=== PATIENT | male | born 1990 | race Caucasian/White ===

== ENCOUNTER 2017-03-20 21:54 | Emergency (ER) | payer OTHER ==
[2017-03-20 22:45] VITALS: BP 142/96; PULSE 93; TEMP 98.7; BMI 28.1
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
[2017-03-21] MEDS ORDERED: IBUPROFEN 400 MG TABLET (FP) PO ONE ×2 (01:37→01:40)
== END 2017-03-21 01:49 | disposition home or self-care (01) ==
LOC: JER 21:54
DX: S89.81XA Other specified injuries of right lower leg, initial encounter (principal); S89.82XA Other specified injuries of left lower leg, initial encounter; S60.511A Abrasion of right hand, initial encounter; S50.311A Abrasion of right elbow, initial encounter; V53.5XXA Driver of pick-up truck or van injured in collision with car, pick-up truck or van in traffic accident, initial encounter; Y92.412 Parkway as the place of occurrence of the external cause; Y93.89 Activity, other specified; Y99.8 Other external cause status
CPT/HCPCS: 73562-TC-LT; 73562-TC-RT; 73590-TC-LT; 73590-TC-RT; 99282-25

== ENCOUNTER 2018-06-27 12:38 | Inpatient (IN) | payer OTHER ==
[2018-06-27 12:49] VITALS: BMI 28.1
--- NOTE | 2018-06-27 14:19 | HP ---
CIWA Score Nausea/Vomitin Muscle Tremors: 2 Anxiety: 2 Agitation: 2 Paroxysmal Sweats: 1-Minimal Palms Moist Orientation: 0-Oriented Tacttile Disturbances: 1-Very Mild Itch/Numbness Auditory Disturbances: 1-Very Mild Visual Disturbances: 0-None Headache: 2-Mild CIWA-Ar Total Score: 13 - Admission Criteria [facility]ASAS Guidelines: Admission for Medically Managed Detox: Requires at least one of the followin. CIWA greater than 12 2. Seizures within the past 24 hours 3. Delirium tremens within the past 24 hours 4. Hallucinations within the past 24 hours 5. Acute intervention needed for co occurring medical disorder 6. Acute intervention needed for co occurring psychiatric disorder 7. Severe withdrawal that cannot be handled at a lower level of care (continued vomiting, continued diarrhea, abnormal vital signs) requiring intravenous medication and/or fluids 8. Patient presents the following: CIWA greater than 12 Admission Criteria Met: Admission criteria met Admission ROS S - [facility] Chief Complaint: i need help to stop drinking alcohol,xanax,seeking detox,withdrawal symptom, last detox [facility] 04/09/17. syncope nicotine dependence bipolar disorder,ptsd, no suicidal,no homicidal longest period of sobriety 15 months plan of out patient program Allergies/Adverse Reactions: Allergies Allergy/AdvReac Type Severity Reaction Status Date / Time No Known Allergies Allergy Verified 06/27/18 14:28 History of Present Illness: this 27 years old male with alcohol and xanax dependence,seeking detox, withdrawal symptom,last detox [facility] as mentioned Exam Limitations: No Limitations - Ebola screening Have you traveled outside of the country in the last 21 days: No (N) Have you had contact with anyone from an Ebola affected area: No Have you been sick,other than usual withdrawal symptoms: No Do you have a fever: No - Review of Systems Constitutional: Loss of Appetite, Malaise, Night Sweats, Changes in sleep, Weakness EENT: reports: No Symptoms Reported, Nose Congestion Respiratory: reports: No Symptoms reported Cardiac: reports: Palpitations GI: reports: Nausea, Vomiting, Abdominal cramping : reports: No Symptoms Reported Musculoskeletal: reports: Back Pain, Muscle Pain Integumentary: reports: Dryness Neuro: reports: Headache, Tremors Endocrine: reports: No Symptoms Reported Hematology: reports: No Symptoms Reported Psychiatric: reports: No Sypmtoms Reported, Judgement Intact, Mood/Affect Appropiate, Orientated x3, other (bipolar,ptsd,) Patient History - Patient Medical History Hx Anemia: No Hx Asthma: No Hx Chronic Obstructive Pulmonary Disease (COPD): No Hx Cancer: No Hx Cardiac Disorders: No Hx Congestive Heart Failure: No Hx Hypertension: No Hx Hypercholesterolemia: No Hx Pacemaker: No HX Cerebrovascular Accident: No Hx Seizures: No Hx Dementia: No Hx Diabetes: No Hx Gastrointestinal Disorders: No Hx Liver Disease: No Hx Genitourinary Disorders: No Hx Sexually Transmitted Disorders: No Hx Renal Disease (ESRD): No Hx Thyroid Disease: No Hx Human Immunodeficiency Virus (HIV): No (last 03/07 ) Hx Hepatitis C: No Hx Depression: No Hx Suicide Attempt: No Hx Bipolar Disorder: Yes (on med) Hx Schizophrenia: No Other Medical History: no suicidal,no homicidal - Patient Surgical History Past Surgical History: No Hx Neurologic Surgery: No Hx Cataract Extraction: No Hx Cardiac Surgery: No Hx Lung Surgery: No Hx Breast Surgery: No Hx Breast Biopsy: No Hx Abdominal Surgery: No Hx Appendectomy: No Hx Cholecystectomy: No Hx Genitourinary Surgery: No Hx Orthopedic Surgery: No Anesthesia Reaction: No - PPD History Previous Implant?: Yes Documented Results: Negative w/o proof Implanted On Prior [facility] Admission?: Yes Date: 03/23/17 PPD to be Administered?: Yes - Smoking Cessation Smoking history: Current every day smoker Have you smoked in the past 12 months: Yes Aproximately how many cigarettes per day: 5 Cigars Per Day: 0 Hx Chewing Tobacco Use: No Initiated information on smoking cessation: Yes 'Breaking Loose' booklet given: 06/27/18 - Substance & Tx. History Hx Alcohol Use: Yes Hx Substance Use: Yes Substance Use Type: Alcohol, Tranquilizers Hx Substance Use Treatment: Yes ([facility] 04/07) - Substances Abused Alcohol Route: Oral Frequency: Daily Amount used: 1 pint vodka Age of first use: 13 Date of Last Use: 06/27/18 Alprazolam (Xanax) Route: Oral Frequency: Daily Amount used: 6mg Age of first use: 16 Date of Last Use: 06/27/18 GHB Route: Oral Frequency: Daily Amount used: 1 and 1/2 ounces Age of first use: 27 Date of Last Use: 06/27/18 Family Disease History - Family Disease History Family Disease History: Other: Mother (alcohol,sober) Admission Physical Exam [facility] - Vital Signs Vital Signs: Vital Signs - 24 hr 06/27/18 12:46 Temperature 98.5 F Pulse Rate 117 H Respiratory 18 Rate Blood Pressure 137/85 - Physical General Appearance: Yes: Moderate Distress, Tremorous, Irritable, Sweating HEENTM: Yes: Normal ENT Inspection, MENA, Pharynx Normal, Tm's normal Respiratory: Yes: Lungs Clear, Normal Breath Sounds, No Respiratory Distress Neck: Yes: Within Normal Limits, Supple, Trachea in good position Breast: Yes: Within Normal Limits Cardiology: Yes: Within Normal Limits, Regular Rhythm, Regular Rate, S1, S2 Abdominal: Yes: Within Normal Limits, Normal Bowel Sounds, Non Tender, Soft Genitourinary: Yes: Within Normal Limits Back: Yes: Muscle Spasm Musculoskeletal: Yes: full range of Motion, Back pain, Joint Stiffness, Muscle Pain Extremities: Yes: Tremors Neurological: Yes: coroner transport technician II-XII NML intact, Fully Oriented, Alert, Motor Strength 5/5 Integumentary: Yes: Dry Lymphatic: Yes: Within Normal Limits - Diagnostic (1) Alcohol dependence with uncomplicated intoxication Current Visit: Yes Status: Acute (2) Nicotine dependence Current Visit: No Status: Acute Qualifiers: Nicotine product type: cigarettes Substance use status: in withdrawal Qualified Code(s): F17.213 - Nicotine dependence, cigarettes, with withdrawal (3) Uncomplicated sedative, hypnotic or anxiolytic withdrawal Current Visit: Yes Status: Acute (4) Bipolar disorder Current Visit: Yes Status: Acute (5) Syncope Current Visit: Yes Status: Acute Cleared for Admission [facility] - Detox or Rehab [facility] Level of Care: Medically Managed Detox Regimen/Protocol: Librium [facility] Breath Alcohol Content Breath Alcohol Content: 0.018 Urine Drug Screen - Results Drug Screen Negative: No Urine Drug Screen Results: THC-Marijuana, BZO-Benzodiazepines Inpatient Rehab Admission - Rehab Decision to Admit Inpatient rehab admission?: No
[2018-06-27] MEDS ORDERED: MAGNESIUM CITRATE 300 ML BOTTLE PO PRN (14:46)
[2018-06-27] MEDS ORDERED: MENTHOL/PHENOL 1 EACH UD MM PRN (14:46)
[2018-06-27] MEDS ORDERED: ACETAMINOPHEN 325 MG TABLET (FP) PO PRN (14:46)
[2018-06-27] MEDS ORDERED: guaiFENesin/D-METHORPHAN HB 10 ML UNIT-DOSE CUPS PO PRN (14:46)
[2018-06-27] MEDS ORDERED: P-EPHED 60MG/TRIPROLIDI 2.5MG TABLET PO PRN (14:46)
[2018-06-27] MEDS ORDERED: MAGNESIUM HYDROX 2400MG/30ML ORAL SUSPENSION 30 ML CUP PO PRN (14:46)
[2018-06-27] MEDS ORDERED: LOPERAMIDE HCL 2 MG CAPSULE PO PRN (14:46)
[2018-06-27] MEDS ORDERED: MAG HYDROX/AL HYDROX/SIMETH 30 ML UNIT-DOSE CUP PO PRN (14:46)
[2018-06-27] MEDS ORDERED: IBUPROFEN 400 MG TABLET (FP) PO PRN (14:46)
[2018-06-27] MEDS ORDERED: hydrOXYzine PAMOATE 50 MG CAPSULE (FP) PO PRN (14:46)
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
--- NOTE | 2018-06-27 21:13 | PN ---
[facility] Progress Note Note: Patient returns from [facility] ER after being sent by [facility] earlier today, for evaluation of altered mental status and reported head injury. ED Note as follows: "06/27/18 16:45 Mr. Deshpande is a 27 yo male w/ pmh as described who presents for evaluation of symptoms consistent w/ admitted substance abuse. Patient unable to provide further history upon presentation. Observed to be sleeping in bed - unable to arouse. Patient given zofran for small spit-up and retching; patient momentarily awakened when suctioned with yankauer. Patient given 1L NS and narcan prophylactically for unknown overdose status. Patient will be monitored and evaluated further with Head CT, CXR, EKG. 06/27/18 18:20 Patient alert and oriented; confirms history of GHB abuse. Denies further drug use at this time. Seen to be walking around unit with steady gait. Currently pending CT Head read. Will likely be discharged back to [facility] pending no acute findings. 06/27/18 18:[address] negative. CXR negative. No concern for acute process at this time. Discharging." Patient is alert and oriented. States twisted (R) ankle earlier today. Sharp foot pain when walks. Pain is a "3-4". When patient was told we were to send him back to ED for x-rays, he ripped off his shirt and said he was leaving. Patient states "My foot is fine". Patient agreed to remain in detox and if pain continues or circulation changes occur, he must go for evaluation. Patient agreed. (R) foot tenderness upon FWB. FROM ankle and toes. No crepitus palpated. Swelling w/ faint ecchimosis at (R) lateral dorsum area of (R) foot. Pedal pulses (+). Plan: Send to unit. Initiate detox protocol Ice to (R) ankle area QID x 20 minutes Ibuprofen 800 mg PO Q8H x 2 days Encourage elevation of (R) foot Cane, as needed Douglas bandage to (R) foot and ankle.
[2018-06-27] MEDS ORDERED: guaiFENesin 200 MG/10 ML 10 ML UNIT-DOSE CUPS PO PRN (21:41)
[2018-06-27] MEDS ORDERED: NICOTINE POLACRILEX 2 MG GUM BUC PRN (21:41)
[2018-06-27] MEDS ORDERED: MELATONIN 5 MG TABLETS PO PRN (22:00)
[2018-06-27] MEDS: chlordiazePOXIDE HCL 25 MG CAPSULE PO SCH ×2 (22:56)
[2018-06-27] MEDS: IBUPROFEN 400 MG TABLET (FP) PO SCH (22:57)
[2018-06-27] MEDS: THIAMINE HCL 100 MG TABLET (FP) PO SCH (22:58)
[2018-06-28] MEDS: chlordiazePOXIDE HCL 25 MG CAPSULE PO SCH ×4 (05:50→22:28)
[2018-06-28] MEDS: IBUPROFEN 400 MG TABLET (FP) PO SCH ×3 (07:13→22:28)
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
[2018-06-28 10:11] LABS: HEMATOCRIT 45.5 % (35.4-49); MCH 33.8 pg (25.7-33.7); MCHC 35.1 g/dl (32.0-35.9); MEAN CELL VOLUME 96.1 fl (80-96); MEAN PLT VOLUME 10.2 fl (7.5-11.1); PLATELET COUNT 186 K/MM3 (134-434); RBC 4.73 M/mm3 (4.00-5.60); RDW 13.6 % (11.9-15.9); WHITE BLOOD COUNT 11.1 K/mm3 (4.0-10.0)
[2018-06-28] MEDS: PRENATAL VITAMINS W/ FOLIC ACID TABLET (FP) PO SCH (10:28)
[2018-06-28] MEDS: ESCITALOPRAM OXALATE 20 MG TABLET (FP) PO SCH (10:30)
[2018-06-28] MEDS: NICOTINE 21 MG/24 HOURS TOPICAL PATCH TD SCH (10:31)
[2018-06-28 11:04] LABS: ALBUMIN 3.7 g/dl (3.4-5.0); ALK PHOS 94 U/L (45-117); ANION GAP 7 MMOL/L (8-16); BILIRUBIN,TOTAL 1.2 mg/dL (0.2-1); BLOOD UREA NITROGEN 18 mg/dL (7-18); CHLORIDE 101 mmol/L (98-107); CO2 30 mmol/L (21-32); CREATININE 0.9 mg/dL (0.55-1.3); GLUCOSE,RANDOM 83 mg/dL (74-106); POTASSIUM 4.3 mmol/L (3.5-5.1); SGOT/AST 13 U/L (15-37); SGPT/ALT 31 U/L (13-61); SODIUM 138 mmol/L (136-145); TOT PROT 6.6 g/dl (6.4-8.2)
[2018-06-28] MEDS: GABAPENTIN 300 MG CAPSULE (FP) PO SCH ×2 (14:25→22:28)
[2018-06-28] MEDS: chlordiazePOXIDE HCL 25 MG CAPSULE PO PRN ×2 (14:27→19:09)
--- NOTE | 2018-06-28 16:47 | PN ---
[facility] CIWA - CIWA Score Nausea/Vomitin-No Nausea/No Vomiting Muscle Tremors: None Anxiety: 4-Mod. Anxious/Guarded Agitation: 2 Paroxysmal Sweats: 3 Orientation: 0-Oriented Tacttile Disturbances: 2-Mild Itch/Numbness/Burn Auditory Disturbances: 0-None Visual Disturbances: 0-None Headache: 0-None Present CIWA-Ar Total Score: 11 S Progress Note (SOAP) Subjective: Interrupted Sleep, Sweating, Anxious. Objective: PATIENT A & O X 3, OBSERVED AMBULATING ON UNIT WITH ASSISTANCE OF A CANE. IN NO ACUTE DISTRESS. 06/28/18 16:45 Vital Signs Temperature 98.7 F 06/28/18 14:00 Pulse Rate 84 06/28/18 14:00 Respiratory Rate 06/28/18 14:00 Blood Pressure 136/71 06/28/18 14:00 O2 Sat by Pulse Oximetry (%) Laboratory Tests 06/28/18 06/28/18 06/28/18 07:00 07:00 07:00 WBC 11.1 H RBC 4.73 Hgb 16.0 Hct 45.5 MCV 96.1 H MCH 33.8 H MCHC 35.1 RDW 13.6 Plt Count 186 MPV 10.2 Sodium 138 Potassium 4.3 Chloride 101 Carbon Dioxide 30 Anion Gap 7 L BUN 18 Creatinine 0.9 Creat Clearance w eGFR > 60 Random Glucose 83 Calcium 9.0 Total Bilirubin 1.2 H AST 13 L ALT 31 Alkaline Phosphatase 94 Total Protein 6.6 Albumin 3.7 RPR Titer Nonreactive LABS NOTED. Assessment: 06/28/18 16:46 WITHDRAWAL SYMPTOMS. LEUKOCYTOSIS. Plan: CONTINUE DETOX. INCREASE DAILY PO FLUID INTAKE. REPEAT CBC TOMORROW AM FOR ELEVATED ADMISSION WBC LEVEL.
[2018-06-28] MEDS ORDERED: traZODone HCL 100 MG TABLET (FP) PO SCH (22:00)
[2018-06-28] MEDS: THIAMINE HCL 100 MG TABLET (FP) PO SCH (22:28)
[2018-06-29] MEDS: GABAPENTIN 300 MG CAPSULE (FP) PO SCH ×2 (05:41→14:01)
[2018-06-29] MEDS: chlordiazePOXIDE HCL 25 MG CAPSULE PO SCH ×2 (05:41→10:19)
[2018-06-29] MEDS: IBUPROFEN 400 MG TABLET (FP) PO SCH ×2 (06:30→14:01)
[2018-06-29] MEDS: NICOTINE 21 MG/24 HOURS TOPICAL PATCH TD SCH (10:19)
[2018-06-29] MEDS: PRENATAL VITAMINS W/ FOLIC ACID TABLET (FP) PO SCH (10:19)
[2018-06-29] MEDS: ESCITALOPRAM OXALATE 20 MG TABLET (FP) PO SCH (10:19)
[2018-06-29 11:59] LABS: BASO % 0.3 % (0-2.0); EOS % 2.8 % (0-4.5); HEMATOCRIT 42.4 % (35.4-49); HEMOGLOBIN 14.6 GM/dL (11.7-16.9); LYMPH % 40.4 % (8-40); MCH 32.8 pg (25.7-33.7); MCHC 34.4 g/dl (32.0-35.9); MEAN CELL VOLUME 95.5 fl (80-96); MONO % 11.3 % (3.8-10.2); NEUT % 45.2 % (42.8-82.8); PLATELET COUNT 180 K/MM3 (134-434); RBC 4.44 M/mm3 (4.00-5.60); RDW 13.5 % (11.9-15.9)
[2018-06-29 13:15] VITALS: BP 126/74; PULSE 93; TEMP 96.9
[2018-06-29] MEDS: chlordiazePOXIDE HCL 25 MG CAPSULE PO PRN (14:02)
--- NOTE | 2018-06-29 14:22 | PN ---
[facility] CIWA - CIWA Score Nausea/Vomitin-No Nausea/No Vomiting Muscle Tremors: None Anxiety: 3 Agitation: 0-Normal Activity Paroxysmal Sweats: 3 Orientation: 0-Oriented Tacttile Disturbances: 2-Mild Itch/Numbness/Burn Auditory Disturbances: 0-None Visual Disturbances: 2-Mild Sensitivity Headache: 0-None Present CIWA-Ar Total Score: 10 S Progress Note (SOAP) Subjective: Sweating, Anxious, Interrupted Sleep. Objective: PATIENT A & O X 3, OBSERVED AMBULATING ON UNIT WITH ASSISTANCE OF A CANE. IN NO ACUTE DISTRESS. PATIENT AFEBRILE. 06/29/18 14:23 Vital Signs Temperature 96.9 F L 06/29/18 13:14 Pulse Rate 93 H 06/29/18 13:14 Respiratory Rate 18 06/29/18 13:14 Blood Pressure 126/74 06/29/18 13:14 O2 Sat by Pulse Oximetry (%) Laboratory Tests 06/28/18 06/28/18 06/28/18 07:00 07:00 07:00 WBC 11.1 H RBC 4.73 Hgb 16.0 Hct 45.5 MCV 96.1 H MCH 33.8 H MCHC 35.1 RDW 13.6 Plt Count 186 MPV 10.2 Absolute Neuts (auto) Neutrophils % Lymphocytes % Monocytes % Eosinophils % Basophils % Nucleated RBC % Sodium 138 Potassium 4.3 Chloride 101 Carbon Dioxide 30 Anion Gap 7 L BUN 18 Creatinine 0.9 Creat Clearance w eGFR > 60 Random Glucose 83 Calcium 9.0 Total Bilirubin 1.2 H AST 13 L ALT 31 Alkaline Phosphatase 94 Total Protein 6.6 Albumin 3.7 RPR Titer Nonreactive 06/29/18 07:40 WBC 8.0 RBC 4.44 Hgb 14.6 Hct 42.4 MCV 95.5 MCH 32.8 MCHC 34.4 RDW 13.5 Plt Count 180 MPV 10.0 Absolute Neuts (auto) 3.6 Neutrophils % 45.2 Lymphocytes % 40.4 H Monocytes % 11.3 H Eosinophils % 2.8 Basophils % 0.3 Nucleated RBC % 0 Sodium Potassium Chloride Carbon Dioxide Anion Gap BUN Creatinine Creat Clearance w eGFR Random Glucose Calcium Total Bilirubin AST ALT Alkaline Phosphatase Total Protein Albumin RPR Titer LABS NOTED. RESLUTS OF REPEAT CBC NOTED. WBC LEVEL NOW NOTED TO BE WITH NORMAL RANGE. 06/29/18 14:24 Assessment: 06/29/18 14:24 WITHDRAWAL SYMPTOMS. Plan: CONTINUE DETOX.
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
[2018-06-29] MEDS ORDERED: chlordiazePOXIDE 5 MG CAPSULE PO SCH (17:00)
[2018-06-30] MEDS ORDERED: chlordiazePOXIDE HCL 10 MG CAPSULE PO SCH (17:00)
== END 2018-06-29 15:58 | disposition left against medical advice (07) | DRG 770 ==
LOC: YASAS 12:38 → Y3N 14:53
PROVIDERS: ADMIT Surgery; ATTEND Surgery
PROC: HZ2ZZZZ Detoxification Services for Substance Abuse Treatment (ICD-10-PCS; principal; 2018-06-27)
DX: F10.230 Alcohol dependence with withdrawal, uncomplicated (principal); F13.230 Sedative, hypnotic or anxiolytic dependence with withdrawal, uncomplicated; F12.20 Cannabis dependence, uncomplicated; F17.213 Nicotine dependence, cigarettes, with withdrawal; F19.24 Other psychoactive substance dependence with psychoactive substance-induced mood disorder; F31.9 Bipolar disorder, unspecified; R55 Syncope and collapse; D72.829 Elevated white blood cell count, unspecified; S09.8XXA Other specified injuries of head, initial encounter; R41.82 Altered mental status, unspecified; W01.198A Fall on same level from slipping, tripping and stumbling with subsequent striking against other object, initial encounter; Y93.89 Activity, other specified; Y92.238 Other place in hospital as the place of occurrence of the external cause; Y99.8 Other external cause status; M79.89 Other specified soft tissue disorders; M79.671 Pain in right foot; R26.89 Other abnormalities of gait and mobility; Z99.89 Dependence on other enabling machines and devices
CPT/HCPCS: 36415; 80053; 85025; 85027; 86593

== ENCOUNTER 2018-06-27 15:59 | Emergency (ER) | payer OTHER ==
[2018-06-27] MEDS ORDERED: ONDANSETRON 4 MG/2 ML VIAL ONE (16:11)
[2018-06-27] MEDS ORDERED: NALOXONE HCL 0.4 MG/ML VIAL ONE (16:17)
[2018-06-27 16:19] VITALS: BP 140/80; PULSE 79; TEMP 97.8; BMI 26.6
[2018-06-27] MEDS ORDERED: SODIUM CHLORIDE 1,000 ML IV STA (16:34)
[2018-06-27] MEDS ORDERED: ONDANSETRON 4 MG/2 ML VIAL IVPUSH ONE (16:34)
[2018-06-27] MEDS ORDERED: NALOXONE HCL 0.4 MG/ML VIAL IVPUSH ONE (16:34)
--- NOTE | 2018-06-27 16:37 | PDOC ---
History of Present Illness - General Chief Complaint: Overdose Stated Complaint: INTOX - History of Present Illness Initial Comments: 06/27/18 16:37 Mr. Deshpande is a 27 yo male w/ pmh of alcohol, xanax, heroin, and GHB abuse [facility] for evaluation of altered mental status and reported head injury. Per detox facility patient was seen to be twitching with odd movements and fell into a garbage can. EMS reports patient had endorsed GHB abuse earlier today. Past History - Past Medical History Allergies/Adverse Reactions: Allergies Allergy/AdvReac Type Severity Reaction Status Date / Time No Known Allergies Allergy Verified 06/27/18 14:28 Home Medications: Ambulatory Orders Gabapentin 800 mg PO TID 03/21/17 Escitalopram Oxalate [Lexapro -] 20 mg PO DAILY 06/27/18 traZODone HCL [Trazodone HCl] 100 mg PO HS 06/27/18 Anemia: No Asthma: No Cancer: No Cardiac Disorders: No CVA: No COPD: No CHF: No Dementia: No Diabetes: No GI Disorders: No Disorders: No HTN: No Hypercholesterolemia: No Kidney Stones: No Liver Disease: No Seizures: No Thyroid Disease: No - Surgical History Abdominal Surgery: No Appendectomy: No Cardiac Surgery: No Cholecystectomy: No Lung Surgery: No Neurologic Surgery: No Orthopedic Surgery: No - Reproductive History Testicular Surgery: No - Suicide/Smoking/Psychosocial Hx Smoking History: Unknown if ever smoked Have you smoked in the past 12 months: Yes Number of Cigarettes Smoked Daily: 5 Cigars Per Day: 0 'Breaking Loose' booklet given: 06/27/18 Hx Alcohol Use: Yes Drug/Substance Use Hx: Yes Substance Use Type: Alcohol, Tranquilizers Hx Substance Use Treatment: Yes ([facility] 04/07) Review of Systems - Review of Systems Comments:: 06/27/18 16:42 Unable to obtain further. *Physical Exam - Vital Signs Last Vital Signs Temp Pulse Resp BP Pulse Ox 97.8 F 79 12 140/80 93 L 06/27/18 16:15 06/27/18 16:15 06/27/18 16:15 06/27/18 16:15 06/27/18 16:15 - Physical Exam Comments: 06/27/18 16:42 GENERAL: +Patient currently only minimally responsive to pain. HEAD: +Small abbrasions to forehead c/w history. Normocephalic, atraumatic EYES: PERRLA, EOMI, sclera anicteric, conjunctiva clear ENT: Auricles normal inspection, hearing grossly normal, nares patent, oropharynx clear without exudates. Moist mucosa NECK: Normal ROM, supple, no lymphadenopathy, JVD, or masses LUNGS: Clear to auscultation bilaterally HEART: Regular rate and rhythm, normal S1 and S2, no murmurs, rubs or gallops, peripheral pulses normal and equal bilaterally. ABDOMEN: Soft, nontender, normoactive bowel sounds. No guarding, no rebound. No masses EXTREMITIES: Normal inspection, Normal range of motion, no edema. No clubbing or cyanosis. NEUROLOGICAL: Cranial nerves II through XII grossly intact. Normal speech, no focal sensorimotor deficits SKIN: Warm, Dry, normal turgor, no rashes or lesions noted. Moderate Sedation - Procedure Monitoring Vital Signs: Procedure Monitoring Vital Signs Temperature 97.8 F 06/27/18 16:15 Pulse Rate 79 06/27/18 16:15 Respiratory Rate 12 06/27/18 16:15 Blood Pressure 140/80 06/27/18 16:15 O2 Sat by Pulse Oximetry (%) 93 L 06/27/18 16:15 ED Treatment Course - LABORATORY CBC & Chemistry Diagram: 06/27/18 16:54 06/27/18 16:54 Medical Decision Making - Medical Decision Making 06/27/18 16:45 Mr. Deshpande is a 27 yo male w/ pmh as described who presents for evaluation of symptoms consistent w/ admitted substance abuse. Patient unable to provide further history upon presentation. Observed to be sleeping in bed - unable to arouse. Patient given zofran for small spit-up and retching; patient momentarily awakened when suctioned with yankauer. Patient given 1L NS and narcan prophylactically for unknown overdose status. Patient will be monitored and evaluated further with Head CT, CXR, EKG. 06/27/18 18:20 Patient alert and oriented; confirms history of GHB abuse. Denies further drug use at this time. Seen to be walking around unit with steady gait. Currently pending CT Head read. Will likely be discharged back to [facility] pending no acute findings. 06/27/18 18:[address] negative. CXR negative. No concern for acute process at this time. Discharging. *DC/Admit/Observation/Transfer Diagnosis at time of Disposition: Altered mental status Qualifiers: Altered mental status type: unspecified Qualified Code(s): R41.82 - Altered mental status, unspecified - Discharge Dispostion Disposition: HOME - Referrals - Patient Instructions Printed Discharge Instructions: DI for Drug Abuse and Drug Addiction Additional Instructions: You were evaluated today in the ER for your altered mental status. We performed a Head CT which was negative and also evaluated you with labs which showed no concerning findings. You are medically cleared to return to [facility] for detox/ rehab. Please follow-up with physicians there for further evaluation. Return to ER if any confusion, return of altered mental status, fever, pain, or other concerning symptoms. - Post Discharge Activity
--- NOTE | 2018-06-27 16:48 | PDOC ---
Attending Attestation - HPI HPI: 06/27/18 17:49 The patient is a 27 year old male with a significant past medical history of alcohol, xanax, heroin, and GHB abuse, who was sent to the emergency department today by Dr. Alford, a doctor at [facility]. Patient was assessed and admitted to [facility] recently for detox of alcohol, cocaine, benzos, and GHB. [facility] states that the patient took some drug and noted that the patient was acting bizarre, making abnormal neck and hand movements, demonstrating a loss of coordination. Dr. Alford stated that due to the extreme movements, the patient hit his head on a garbage can. Upon arrival, patient is somnolent. The patient denies chest pain, shortness of breath, headache and dizziness. Denies fever, chills, nausea, vomit, diarrhea and constipation. Denies dysuria, frequency, urgency and hematuria. Allergies: NKA Social history: Alcohol use, illicit drug use - Physicial Exam PE: 06/27/18 17:49 GENERAL: Lethargic, no response to painful stimuli. The patient is in no acute distress. HEAD: (+)bruising to right forehead. EYES: (+)pupil 1mm bilaterally. sclera anicteric, conjunctiva clear. ENT: Ears normal, nares patent, oropharynx clear without exudates. Moist mucous membranes. NECK: Normal range of motion, supple without lymphadenopathy, JVD, or masses. LUNGS: Breath sounds equal, clear to auscultation bilaterally. No wheezes, and no crackles. HEART:Regular rate and rhythm, normal S1 and S2 without murmur, rub or gallop. ABDOMEN: Soft, nontender, normoactive bowel sounds. No guarding, no rebound. No masses palpable. EXTREMITIES: Normal range of motion, no edema. No clubbing or cyanosis. No erythema, or tenderness. NEUROLOGICAL: Cranial nerves II through XII grossly intact. Normal speech. No focal neurological deficits. MUSCULOSKELETAL: Back non-tender to palpation, no CVA tenderness SKIN: Warm, Dry, normal turgor, no rashes or lesions noted. <Beth Jain - Last Filed: 06/27/18 17:49> - Resident Resident Name: Phil Chin - ED Attending Attestation I have performed the following: I have examined & evaluated the patient, The case was reviewed & discussed with the resident, I agree w/resident's findings & plan, Exceptions are as noted - Medical Decision Making 06/27/18 17:42 Laboratory Tests 06/27/18 16:54 WBC 10.3 H Hgb 16.4 Hct 47.1 D 06/27/18 17:45 EKG: Twelve-lead EKG was performed and reviewed by me. There is normal sinus rhythm with a normal rate. The axis is normal. The intervals are normal. There are no ST or T wave abnormalities. Impression: Normal twelve-lead EKG 06/27/18 17:47 Laboratory Tests 06/27/18 16:54 Sodium 140 Potassium 4.3 Chloride 102 BUN 16 Creatinine 1.0 Random Glucose 98 Salicylates < 1.7 L Acetaminophen < 2 L Alcohol, Quantitative < 3.0 06/27/18 18:37 CT head negative Will discharge to [facility] <Uzma Sexton - Last Filed: 06/27/18 18:37> Attestations - Attestations 06/27/18 17:50 Documentation prepared by Beth Jain, acting as emergency medical technician/driver for Uzma Sexton MD. <Beth Jain - Last Filed: 06/27/18 17:49>
[2018-06-27 17:11] LABS: BASO % 0.5 % (0-2.0); EOS % 2.7 % (0-4.5); HEMATOCRIT 47.1 % (35.4-49); HEMOGLOBIN 16.4 GM/dL (11.7-16.9); LYMPH % 36.8 % (8-40); MCH 33.3 pg (25.7-33.7); MCHC 34.8 g/dl (32.0-35.9); MEAN CELL VOLUME 95.8 fl (80-96); MONO % 9.4 % (3.8-10.2); NEUT % 50.6 % (42.8-82.8); RBC 4.91 M/mm3 (4.00-5.60); RDW 13.3 % (11.9-15.9); WHITE BLOOD COUNT 10.3 K/mm3 (4.0-10.0)
[2018-06-27 17:41] LABS: ALK PHOS 106 U/L (45-117); ANION GAP 12 MMOL/L (8-16); BILIRUBIN,TOTAL 0.6 mg/dL (0.2-1); BLOOD UREA NITROGEN 16 mg/dL (7-18); CALCIUM 8.7 mg/dL (8.5-10.1); CHLORIDE 102 mmol/L (98-107); CO2 27 mmol/L (21-32); GLUCOSE,RANDOM 98 mg/dL (74-106); POTASSIUM 4.3 mmol/L (3.5-5.1); SGOT/AST 10 U/L (15-37); SGPT/ALT 33 U/L (13-61); SODIUM 140 mmol/L (136-145); TOT PROT 7.3 g/dl (6.4-8.2)
[2018-06-27 17:57] LABS: PLATELET COUNT 232 K/MM3 (134-434); PLATELET ESTIMATE ADEQUATE
--- NOTE | 2018-06-28 13:19 | EKG ---
Test Reason : Blood Pressure : / mmHG Vent. Rate : 078 BPM Atrial Rate : 078 BPM P-R Int : 146 ms QRS Dur : 090 ms QT Int : 358 ms P-R-T Axes : 024 -12 017 degrees QTc Int : 408 ms NORMAL SINUS RHYTHM NORMAL ECG WHEN COMPARED WITH ECG OF 21-MAR-2017 21:16, NO SIGNIFICANT CHANGE WAS FOUND Confirmed by CARLOTA PEREZ MD ([id number]) on 06/28/2018 1:19:15 PM Referred By: Confirmed By:CARLOTA PEREZ MD
== END 2018-06-27 20:20 | disposition home or self-care (01) ==
LOC: JER 15:59
PROC: 3E033GC Introduction of Other Therapeutic Substance into Peripheral Vein, Percutaneous Approach (ICD-10-PCS; principal; 2018-06-27)
PROC: 3E033GC Introduction of Other Therapeutic Substance into Peripheral Vein, Percutaneous Approach (ICD-10-PCS; 2018-06-27)
DX: S09.8XXA Other specified injuries of head, initial encounter (principal); W01.198A Fall on same level from slipping, tripping and stumbling with subsequent striking against other object, initial encounter; Y93.89 Activity, other specified; Y92.238 Other place in hospital as the place of occurrence of the external cause; Y99.8 Other external cause status; F10.10 Alcohol abuse, uncomplicated; F14.10 Cocaine abuse, uncomplicated; F13.10 Sedative, hypnotic or anxiolytic abuse, uncomplicated
CPT/HCPCS: 36415; 70450-TC; 71045-TC-FY; 80053; 80307; 85025; 93005; 93010; 99284-25; J7030

== ENCOUNTER 2019-04-14 08:10 | Inpatient (IN) | payer OTHER ==
[2019-04-14 08:49] VITALS: BMI 27.7
--- NOTE | 2019-04-14 09:30 | HP ---
COWS - Scale Resting Pulse: 1= [place] 81-100 Sweatin= Chills/Flushing Restless Observation: 1= Difficult to Sit Still Pupil Size: 1= Pupils >than Normal Bone or Joint Aches: 1= Mild Discomfort Runny Nose/ Eye Tearin= Runny Nose/Eyes GI Upset > 30mins: 0= None Tremor Observation: 1= Tremor [place], Not Seen Yawning Observation: 1= 1-2x During Session Anxiety or Irritability: 1=Feels Anxious/Irritable Goose Flesh Skin: 3=Piloerection COWS Score: 13 CIWA Score - Admission Criteria [facility]ASAS Guidelines: Admission for Medically Managed Detox: Requires at least one of the followin. CIWA greater than 12 2. Seizures within the past 24 hours 3. Delirium tremens within the past 24 hours 4. Hallucinations within the past 24 hours 5. Acute intervention needed for co occurring medical disorder 6. Acute intervention needed for co occurring psychiatric disorder 7. Severe withdrawal that cannot be handled at a lower level of care (continued vomiting, continued diarrhea, abnormal vital signs) requiring intravenous medication and/or fluids 8. Admitting History and Physical - Admission Chief Complaint: "I want to get better and need to stop. I'm tired of it." History of Present Illness: 28 year old male with history of opioid dependence with mild withdrawals and using oral opioids about 2 30 mg pills of Oxycodone daily and or percocet. He used to used heroin up until 2017, intranasally. He never overdosed. He does not carry narcan. Xanax prescribed by PMD which 4mg daily, Adderall 30 mg BID, prescribed by PMD Gabapentin 600mg QID prescribed by PMD by outpatient clinic at [facility] Patient smokes vape daily. Patient denies other substaces of abuse PMH: None PSurg: None Psych: Depression, Anxiety disotder He is domiciled and has some legal issue pending and has court dates. History Source: Patient Limitations to Obtaining History: No Limitations - Past Surgical History Past Surgical History: Yes: None - Smoking History Smoking history: Unknown if ever smoked Have you smoked in the past 12 months: Yes Aproximately how many cigarettes per day: 5 - Alcohol/Substance Use Hx Alcohol Use: No (stopped drinking) History of Substance Use: reports: Heroin, Tranquilizers Date of Last Use: 04/13/19 - Social History Usual Living Arrangement: Yes: Other (with girlfriend) Do you think of yourself as: Straight/Heterosexual ADL: Independent Occupation: construction sales representative History of Recent Travel: No Admission ROS [facility] - [facility] Allergies/Adverse Reactions: Allergies Allergy/AdvReac Type Severity Reaction Status Date / Time No Known Allergies Allergy Verified 04/14/19 08:24 Exam Limitations: No Limitations - Ebola screening Have you traveled outside of the country in the last 21 days: No Have you had contact with anyone from an Ebola affected area: No Have you been sick,other than usual withdrawal symptoms: No Do you have a fever: No - Review of Systems Constitutional: Chills, Diaphoresis EENT: reports: No Symptoms Reported Respiratory: reports: No Symptoms reported Cardiac: reports: No Symptoms Reported GI: reports: Abdominal cramping : reports: No Symptoms Reported Musculoskeletal: reports: Joint Pain, Muscle Pain Neuro: reports: No Symptoms reported Endocrine: reports: No Symptoms Reported Hematology: reports: No Symptoms Reported Psychiatric: reports: Anxious, Depressed Patient History - Patient Medical History Hx Anemia: No Hx Asthma: No Hx Chronic Obstructive Pulmonary Disease (COPD): No Hx Cancer: No Hx Cardiac Disorders: No Hx Congestive Heart Failure: No Hx Hypertension: No Hx Hypercholesterolemia: No Hx Pacemaker: No HX Cerebrovascular Accident: No Hx Seizures: No Hx Dementia: No Hx Diabetes: No Hx Gastrointestinal Disorders: No Hx Liver Disease: No Hx Genitourinary Disorders: No Hx Sexually Transmitted Disorders: No Hx Renal Disease (ESRD): No Hx Thyroid Disease: No Hx Human Immunodeficiency Virus (HIV): No (last 03/07 ) Hx Hepatitis C: No Hx Depression: No Hx Suicide Attempt: No Hx Bipolar Disorder: Yes (on med) Hx Schizophrenia: No - Patient Surgical History Past Surgical History: No Hx Neurologic Surgery: No Hx Cataract Extraction: No Hx Cardiac Surgery: No Hx Lung Surgery: No Hx Breast Surgery: No Hx Breast Biopsy: No Hx Abdominal Surgery: No Hx Appendectomy: No Hx Cholecystectomy: No Hx Genitourinary Surgery: No Hx Orthopedic Surgery: No Anesthesia Reaction: No - PPD History Previous Implant?: Yes Documented Results: Negative w/o proof Implanted On Prior [facility] Admission?: No Date: 03/21/17 Results: negative PPD to be Administered?: Yes - Smoking Cessation Smoking history: Unknown if ever smoked Have you smoked in the past 12 months: Yes Aproximately how many cigarettes per day: 5 Cigars Per Day: 0 Hx Chewing Tobacco Use: No Initiated information on smoking cessation: Yes 'Breaking Loose' booklet given: 04/14/19 - Substances abused Other Other (specify): percocet Substance route: Oral Frequency: Daily Amount used: 30mg Age of first use: 20 Date of last use: 04/13/19 Oxycontin Other (specify): 30MG Substance route: Oral Frequency: Daily Amount used: 1 tab Age of first use: 20 Date of last use: 04/13/19 Admission Physical Exam [facility] - Vital Signs Vital Signs: Vital Signs - 24 hr 04/14/19 08:23 Temperature 97.7 F Pulse Rate 94 H Respiratory 20 Rate Blood Pressure 140/74 - Physical General Appearance: Yes: Mild Distress HEENTM: Yes: EOMI, Hearing grossly Normal, Normal ENT Inspection, Normocephalic , Normal Voice, MENA, Pharynx Normal, Tm's normal Respiratory: Yes: Chest Non-Tender, Lungs Clear, Normal Breath Sounds, No Respiratory Distress, No Accessory Muscle Use Neck: Yes: No masses,lesions,Nodules, Supple, Trachea in good position Breast: Yes: Within Normal Limits Cardiology: Yes: Regular Rhythm, S1, S2, Tachycardia Abdominal: Yes: Non Tender, Flat, Increased Bowel Sounds Genitourinary: Yes: Within Normal Limits Back: Yes: Within Normal Limits Musculoskeletal: Yes: full range of Motion, Gait Steady, Pelvis Stable Extremities: Yes: Normal Capillary Refill, Normal Inspection, Normal Range of Motion, Non-Tender Neurological: Yes: supervising deputy II-XII NML intact, Fully Oriented, Alert, Motor Strength 5/5, Depressed Affect Integumentary: Yes: Normal Color, Warm Lymphatic: Yes: Within Normal Limits - Diagnostic (1) Bipolar disorder Current Visit: Yes Status: Acute Qualifiers: Active/Remission status: remission status unspecified Qualified Code(s): F31.9 - Bipolar disorder, unspecified (2) Opioid dependence with withdrawal Current Visit: Yes Status: Acute (3) Substance induced mood disorder Current Visit: Yes Status: Acute Cleared for Admission [facility] - Detox or Rehab [facility] Level of Care: Medically Managed Detox Regimen/Protocol: Methadone Claeared for Rehab Admission: No Screened but not Admitted - Documentation of Visit Screened but not Admitted: No Breathalyzer - Breathalyzer Breathalyzer: 0 Inpatient Rehab Admission - Rehab Decision to Admit Inpatient rehab admission?: No
[2019-04-14] MEDS ORDERED: MENTHOL/PHENOL 1 EACH UD MM PRN (09:45)
[2019-04-14] MEDS ORDERED: MAG HYDROX/AL HYDROX/SIMETH 30 ML UNIT-DOSE CUP PO PRN (09:45)
[2019-04-14] MEDS ORDERED: METHADONE HCL 10 MG TABLET (FOR DETOX USE ONLY) PO ONE (09:45)
[2019-04-14] MEDS ORDERED: MAGNESIUM HYDROX 2400MG/30ML ORAL SUSPENSION 30 ML CUP PO PRN (09:45)
[2019-04-14] MEDS ORDERED: MAGNESIUM CITRATE 300 ML BOTTLE PO PRN (09:45)
[2019-04-14] MEDS ORDERED: MELATONIN 5 MG TABLETS PO PRN (09:45)
[2019-04-14] MEDS ORDERED: IBUPROFEN 400 MG TABLET (FP) PO PRN (09:45)
[2019-04-14] MEDS ORDERED: BISMUTH SUBSALICYLATE 262 MG/15 ML BTL PO PRN (09:45)
[2019-04-14] MEDS ORDERED: ACETAMINOPHEN 325 MG TABLET (FP) PO PRN ×2 (09:45)
[2019-04-14] MEDS ORDERED: METHOCARBAMOL 500 MG TABLET PO PRN (09:45)
[2019-04-14] MEDS: PRENATAL VITAMINS W/ FOLIC ACID TABLET (FP) PO SCH (10:51)
[2019-04-14] MEDS: NICOTINE 7 MG/24 HOURS TOPICAL PATCH TD SCH (10:51)
[2019-04-14 11:48] LABS: HEMATOCRIT 46.9 % (35.4-49); HEMOGLOBIN 16.2 GM/dL (11.7-16.9); MCH 32.2 pg (25.7-33.7); MCHC 34.6 g/dl (32.0-35.9); MEAN CELL VOLUME 93.3 fl (80-96); MEAN PLT VOLUME 9.2 fl (7.5-11.1); PLATELET COUNT 260 K/MM3 (134-434); RBC 5.03 M/mm3 (4.00-5.60); RDW 12.6 % (11.9-15.9); WHITE BLOOD COUNT 5.5 K/mm3 (4.0-10.0)
[2019-04-14 12:01] LABS: BILIRUBIN,TOTAL 0.7 mg/dL (0.2-1); BLOOD UREA NITROGEN 13.8 mg/dL (7-18); CALCIUM 9.6 mg/dL (8.5-10.1); CREATININE 0.8 mg/dL (0.55-1.3); POTASSIUM 3.8 mmol/L (3.5-5.1); TOT PROT 7.3 g/dl (6.4-8.2)
[2019-04-14] MEDS: cloNIDine HCL 0.1 MG TABLET PO PRN (17:21)
[2019-04-14] MEDS: hydrOXYzine PAMOATE 25 MG CAPSULE (FP) PO PRN (17:21)
[2019-04-14] MEDS ORDERED: SUVOREXANT 10 MG TABLET PO PRN (21:14)
[2019-04-14] MEDS: clonazePAM 0.5 MG TABLET PO PRN (21:25)
[2019-04-14] MEDS: THIAMINE HCL 100 MG TABLET (FP) PO SCH (22:08)
[2019-04-14] MEDS: GABAPENTIN 300 MG CAPSULE (FP) PO SCH (22:08)
[2019-04-15] MEDS ORDERED: METHADONE HCL 5 MG TABLET (FOR DETOX USE ONLY) ONE (09:22)
[2019-04-15] MEDS ORDERED: METHADONE HCL 10 MG TABLET (FOR DETOX USE ONLY) ONE (09:23)
[2019-04-15] MEDS: PRENATAL VITAMINS W/ FOLIC ACID TABLET (FP) PO SCH (09:44)
[2019-04-15] MEDS: NICOTINE 7 MG/24 HOURS TOPICAL PATCH TD SCH (09:44)
[2019-04-15] MEDS: GABAPENTIN 300 MG CAPSULE (FP) PO SCH ×2 (09:44→22:05)
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
[2019-04-15] MEDS ORDERED: METHADONE (DETOX) 20 MG, METHADONE (DETOX) 5 MG PO ONE (10:00)
--- NOTE | 2019-04-15 10:01 | PN ---
[facility] COWS - Scale Resting Pulse: 0= [place] 80 or Below Sweatin= Chills/Flushing Restless Observation: 1= Difficult to Sit Still Pupil Size: 0= Normal to Room Light Bone or Joint Aches: 2= Severe Diffuse Aches Runny Nose/ Eye Tearin= Runny Nose/Eyes GI Upset > 30mins: 0= None Tremor Observation of Outstretched Hands: 1= Tremor [place], Not Seen Yawning Observation: 1= 1-2x During Session Anxiety or Irritability: 2=Irritable/Anxious Goose Flesh Skin: 0=Smooth Skin COWS Score: 10 S Progress Note (SOAP) Subjective: teary eyes sweats mild shakes agitation irritable interrupted sleep knee pain Objective: 04/15/19 10:00 Vital Signs Temperature 97.9 F 04/15/19 09:22 Pulse Rate 64 04/15/19 09:22 Respiratory Rate 16 04/15/19 09:22 Blood Pressure 115/55 L 04/15/19 09:22 O2 Sat by Pulse Oximetry (%) Laboratory Tests 04/14/19 04/14/19 04/14/19 10:35 10:35 10:35 WBC 5.5 RBC 5.03 Hgb 16.2 Hct 46.9 MCV 93.3 MCH 32.2 MCHC 34.6 RDW 12.6 Plt Count 260 D MPV 9.2 Sodium 139 Potassium 3.8 Chloride 104 Carbon Dioxide 30 Anion Gap 4 L BUN 13.8 Creatinine 0.8 Est GFR (CKD-EPI)AfAm 140.90 Est GFR (CKD-EPI)NonAf 121.57 Random Glucose 97 Calcium 9.6 Total Bilirubin 0.7 AST 11 L ALT 19 Alkaline Phosphatase 92 Total Protein 7.3 Albumin 4.0 RPR Titer Nonreactive labs noted aaox3 ambulating no acute distress Assessment: 04/15/19 10:00 withdrawals Plan: continue detox increase fluids motrin/tylenol/roboxin prn
[2019-04-15] MEDS: clonazePAM 0.5 MG TABLET PO PRN (12:50)
[2019-04-15] MEDS: ESCITALOPRAM OXALATE 20 MG TABLET (FP) PO SCH (12:50)
--- NOTE | 2019-04-15 14:07 | PN ---
[facility] Progress Note (SOAP) Subjective: Patient still very anxious and states that his Xanax has not been continued while here Objective: 04/15/19 14:03 Reviewed psychiatrist note and it was confirmed that he is prescribed xanax 2mg bid. These scripts were filled out earlier in the month on 03/28/19/. Patient is very anxious and pacing the floor. However, alert and oriented x 3 Assessment: 04/15/19 14:05 Benzodiazepine Dependence: He is on high dose and abruptly stopping his meds while in detox would be not appropriate. Therefore, will give lesser dose of Xanax 1 mg BID for his duration while in detox treatment for comfort. However, his home meds which he filled must be monitored by his prescriber.... Plan: 1 Will continue but at a lesser dose his benzodiazepine.
[2019-04-15] MEDS: hydrOXYzine PAMOATE 25 MG CAPSULE (FP) PO PRN (18:00)
[2019-04-15] MEDS: cloNIDine HCL 0.1 MG TABLET PO PRN (18:00)
[2019-04-15] MEDS ORDERED: clonazePAM 0.5 MG TABLET PO ONE (18:00)
[2019-04-15] MEDS ORDERED: SUVOREXANT 10 MG TABLET PO PRN (22:00)
[2019-04-15] MEDS: clonazePAM 0.5 MG TABLET PO SCH (22:06)
[2019-04-15] MEDS: THIAMINE HCL 100 MG TABLET (FP) PO SCH (22:06)
[2019-04-16] MEDS ORDERED: METHADONE HCL 10 MG TABLET (FOR DETOX USE ONLY) PO ONE (10:00)
[2019-04-16] MEDS: NICOTINE 7 MG/24 HOURS TOPICAL PATCH TD SCH (10:20)
[2019-04-16] MEDS: ESCITALOPRAM OXALATE 20 MG TABLET (FP) PO SCH (10:20)
[2019-04-16] MEDS: PRENATAL VITAMINS W/ FOLIC ACID TABLET (FP) PO SCH (10:20)
[2019-04-16] MEDS: GABAPENTIN 300 MG CAPSULE (FP) PO SCH ×2 (10:20→22:13)
[2019-04-16] MEDS: clonazePAM 0.5 MG TABLET PO SCH ×2 (10:21→22:13)
--- NOTE | 2019-04-16 11:53 | PN ---
[facility] COWS - Scale Resting Pulse: 0= [place] 80 or Below Sweatin= Chills/Flushing Restless Observation: 1= Difficult to Sit Still Pupil Size: 0= Normal to Room Light Bone or Joint Aches: 1= Mild Discomfort Runny Nose/ Eye Tearin= None GI Upset > 30mins: 0= None Tremor Observation of Outstretched Hands: 1= Tremor [place], Not Seen Yawning Observation: 1= 1-2x During Session Anxiety or Irritability: 1=Feels Anxious/Irritable Goose Flesh Skin: 0=Smooth Skin COWS Score: 6 [facility] Progress Note (SOAP) Subjective: feeling better sweats anxiety Objective: 04/16/19 11:52 Vital Signs Temperature 98.1 F 04/16/19 09:36 Pulse Rate 60 04/16/19 09:36 Respiratory Rate 16 04/16/19 09:36 Blood Pressure 106/62 04/16/19 09:36 O2 Sat by Pulse Oximetry (%) Laboratory Tests 04/14/19 04/14/19 04/14/19 10:35 10:35 10:35 WBC 5.5 RBC 5.03 Hgb 16.2 Hct 46.9 MCV 93.3 MCH 32.2 MCHC 34.6 RDW 12.6 Plt Count 260 D MPV 9.2 Sodium 139 Potassium 3.8 Chloride 104 Carbon Dioxide 30 Anion Gap 4 L BUN 13.8 Creatinine 0.8 Est GFR (CKD-EPI)AfAm 140.90 Est GFR (CKD-EPI)NonAf 121.57 Random Glucose 97 Calcium 9.6 Total Bilirubin 0.7 AST 11 L ALT 19 Alkaline Phosphatase 92 Total Protein 7.3 Albumin 4.0 RPR Titer Nonreactive aaox3 ambulating no acute distress Assessment: 04/16/19 11:53 withdrawals Plan: continue detox increase fluids
[2019-04-16] MEDS: cloNIDine HCL 0.1 MG TABLET PO PRN (17:39)
[2019-04-16] MEDS: THIAMINE HCL 100 MG TABLET (FP) PO SCH (22:13)
[2019-04-17] MEDS ORDERED: METHADONE (DETOX) 10 MG, METHADONE (DETOX) 5 MG PO ONE (10:00)
[2019-04-17] MEDS ORDERED: METHADONE HCL 10 MG TABLET (FOR DETOX USE ONLY) ONE (10:10)
[2019-04-17] MEDS ORDERED: METHADONE HCL 5 MG TABLET (FOR DETOX USE ONLY) ONE (10:10)
[2019-04-17] MEDS: clonazePAM 0.5 MG TABLET PO SCH (10:11)
[2019-04-17] MEDS: PRENATAL VITAMINS W/ FOLIC ACID TABLET (FP) PO SCH (10:11)
[2019-04-17] MEDS: NICOTINE 7 MG/24 HOURS TOPICAL PATCH TD SCH (10:11)
[2019-04-17] MEDS: ESCITALOPRAM OXALATE 20 MG TABLET (FP) PO SCH (10:11)
[2019-04-17] MEDS: GABAPENTIN 300 MG CAPSULE (FP) PO SCH (10:11)
--- NOTE | 2019-04-17 10:45 | PN ---
[facility] COWS - Scale Resting Pulse: 0= SC 80 or Below Sweatin= Chills/Flushing Restless Observation: 1= Difficult to Sit Still Pupil Size: 0= Normal to Room Light Bone or Joint Aches: 1= Mild Discomfort Runny Nose/ Eye Tearin= Nasal Congestion GI Upset > 30mins: 0= None Tremor Observation of Outstretched Hands: 1= Tremor Turner, Not Seen Yawning Observation: 1= 1-2x During Session Anxiety or Irritability: 1=Feels Anxious/Irritable Goose Flesh Skin: 0=Smooth Skin COWS Score: 7 [facility] Progress Note (SOAP) Subjective: sweats interrupting sleep body aches Objective: 04/17/19 10:53 Vital Signs Temperature 96.3 F L 04/17/19 10:46 Pulse Rate 69 04/17/19 10:46 Respiratory Rate 18 04/17/19 10:46 Blood Pressure 132/59 L 04/17/19 10:46 O2 Sat by Pulse Oximetry (%) Laboratory Tests 04/14/19 04/14/19 04/14/19 10:35 10:35 10:35 WBC 5.5 RBC 5.03 Hgb 16.2 Hct 46.9 MCV 93.3 MCH 32.2 MCHC 34.6 RDW 12.6 Plt Count 260 D MPV 9.2 Sodium 139 Potassium 3.8 Chloride 104 Carbon Dioxide 30 Anion Gap 4 L BUN 13.8 Creatinine 0.8 Est GFR (CKD-EPI)AfAm 140.90 Est GFR (CKD-EPI)NonAf 121.57 Random Glucose 97 Calcium 9.6 Total Bilirubin 0.7 AST 11 L ALT 19 Alkaline Phosphatase 92 Total Protein 7.3 Albumin 4.0 RPR Titer Nonreactive aaox3 ambulating no acute distress Assessment: 04/17/19 10:54 withdrawals Plan: continue detox increase fluids
[2019-04-17 10:47] VITALS: BP 132/59; PULSE 69; TEMP 96.3
--- NOTE | 2019-04-17 12:16 | PN ---
[facility] Progress Note Note: pt decided to leave states its Thanksgiving and wants to be with family. Pt was encouraged to stay and complete his detox he can be at risk of relapse, seizures , DTs, OD and or loss, however pt insisted he is getting a ride home and wants to leave now. Pt chose to sign out AMA.
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
[2019-04-18] MEDS ORDERED: METHADONE HCL 10 MG TABLET (FOR DETOX USE ONLY) PO ONE (10:00)
[2019-04-19] MEDS ORDERED: METHADONE HCL 5 MG TABLET (FOR DETOX USE ONLY) PO ONE (06:00)
== END 2019-04-17 12:26 | disposition home or self-care (01) | DRG 773 ==
LOC: YASAS 08:10 → Y6N 09:43
PROVIDERS: ADMIT Allergy & Immunology; ATTEND Allergy & Immunology
PROC: HZ2ZZZZ Detoxification Services for Substance Abuse Treatment (ICD-10-PCS; principal; 2019-04-14)
DX: F11.23 Opioid dependence with withdrawal (principal); F10.230 Alcohol dependence with withdrawal, uncomplicated; F13.20 Sedative, hypnotic or anxiolytic dependence, uncomplicated; F17.210 Nicotine dependence, cigarettes, uncomplicated; F19.280 Other psychoactive substance dependence with psychoactive substance-induced anxiety disorder; F19.282 Other psychoactive substance dependence with psychoactive substance-induced sleep disorder; F19.24 Other psychoactive substance dependence with psychoactive substance-induced mood disorder; F43.10 Post-traumatic stress disorder, unspecified; F31.9 Bipolar disorder, unspecified; F90.9 Attention-deficit hyperactivity disorder, unspecified type; V89.2XXS Person injured in unspecified motor-vehicle accident, traffic, sequela
CPT/HCPCS: 36415; 80053; 85027; 86593; J0735